=== PATIENT | male | born 1995 | race Caucasian/White ===

== ENCOUNTER 2021-11-08 19:04 | Emergency (ER) | payer OTHER, BC ==
[2021-11-08] MEDS ORDERED: Ibuprofen 800 MG TAB ONE (20:31)
== END 2021-11-08 20:57 | disposition home or self-care (01) ==
LOC: NAV ERS 19:04
DX: S93.401A Sprain of unspecified ligament of right ankle, initial encounter (principal); V89.2XXA Person injured in unspecified motor-vehicle accident, traffic, initial encounter
CPT/HCPCS: G0390